=== PATIENT | female | born 1995 | race African-American/Black ===

== ENCOUNTER 2017-07-07 11:21 | Emergency (ER) | payer OTHER ==
[~2017-07-07] VITALS: Ht 160 cm; Wt 135.0 kg
[~2017-07-07 11:21] MED LIST: BACTRIM DS1 TAB OR; CIPRO500 MG OR; CIPROFLOXACN500 MG PO; MIRALAX3350 N1 PO; NEXIUM40 M1 PO; PYRIDIUM200 MG OR; PYRIDIUM200 MG PO
[2017-07-07 11:58] VITALS: BP 118/88
== END 2017-07-07 12:23 | disposition home or self-care (01) | DRG 866 ==
LOC: ED 11:21
DX: B34.9 Viral infection, unspecified (principal)

== ENCOUNTER 2018-03-27 16:05 | Emergency (ER) | payer OTHER ==
[~2018-03-27] VITALS: Ht 160 cm; Wt 100.0 kg
[2018-03-27] MEDS ORDERED: BACTRIM DS1 TAB PO (16:39)
[2018-03-27] MEDS ORDERED: NO HOME MED (16:53)
[2018-03-27 17:12] VITALS: BP 152/79
== END 2018-03-27 17:12 | disposition home or self-care (01) | DRG 603 ==
LOC: ED 16:05
DX: L08.9 Local infection of the skin and subcutaneous tissue, unspecified (principal)

== ENCOUNTER 2019-09-13 | Emergency (ER) | payer BC ==
[~2019-09-13] MED LIST changes: +BACTRIM DS1 TAB PO; +NO HOME MED
[2019-09-13 12:57] LABS: URINE BILIRUBIN - DIPSTICK NEGATIVE (NEGATIVE); URINE BLOOD DIPSTICK NEGATIVE (NEGATIVE); URINE CLARITY CLEAR; URINE COLOR YELLOW; URINE GLUCOSE - DIPSTICK NEGATIVE (NEGATIVE); URINE KETONE NEGATIVE (NEGATIVE); URINE LEUK ESTERASE NEGATIVE (Negative); URINE NITRITE - DIPSTICK NEGATIVE (Negative); URINE PROTEIN - DIPSTICK NEGATIVE (NEG-TRACE); URINE UROBILINOGEN - DIPSTICK 0.2 E.U./dL (0.2)
[2019-09-13] MEDS ORDERED: MEDDOSEPAK PO (14:43)
== END 2019-09-13 14:55 | disposition home or self-care (01) | DRG 552 ==
DX: M54.42 Lumbago with sciatica, left side (principal)

== ENCOUNTER 2022-01-29 15:11 | Emergency (ER) | payer OTHER, BC ==
[~2022-01-29] VITALS: Ht 160 cm; Wt 153.2 kg
[2022-01-29] VITALS (15 sets, daily range): BP systolic 103–153; BP diastolic 51–111
[~2022-01-29 15:11] MED LIST changes: +MEDDOSEPAK PO
[2022-01-29] MEDS ORDERED: NAPROXEN500 MG PO (19:44)
[2022-01-29] MEDS ORDERED: FLEXERIL5 M1 PO (19:44)
== END 2022-01-29 20:19 | disposition home or self-care (01) | DRG 552 ==
LOC: ED 15:11
DX: S16.1XXA Strain of muscle, fascia and tendon at neck level, initial encounter (principal); V49.40XA Driver injured in collision with unspecified motor vehicles in traffic accident, initial encounter

== ENCOUNTER 2023-09-03 12:40 | Emergency (ER) | payer SELFPAY ==
[~2023-09-03] VITALS: Ht 160 cm; Wt 150.0 kg
[~2023-09-03 12:40] MED LIST changes: +FLEXERIL5 M1 PO; +NAPROXEN500 MG PO
[2023-09-03 15:06] VITALS: BP 125/80
[2023-09-03 15:15] VITALS: BP 122/82
[2023-09-03] MEDS ORDERED: PERCOCET 5/325M1 TAB PO (15:21)
[2023-09-03 15:30] VITALS: BP 123/86
== END 2023-09-03 15:43 | disposition home or self-care (01) | DRG 563 ==
LOC: ED 12:40
DX: S43.402A Unspecified sprain of left shoulder joint, initial encounter (principal); W19.XXXA Unspecified fall, initial encounter